=== PATIENT | female | born 1945 | race Caucasian/White ===

== ENCOUNTER 2016-10-19 09:40 | Day surgery (SDC) | payer BC, MEDICARE ==
--- NOTE | ~2016-10-19 | EGD ---
EGD REPORT [facility] [address] [place] [id number] NAME: RONIT MEDRANO : [birth year] STATUS : REG [facility]#: [id number] AGE: 71 ADM/REG DATE : 10/19/16 MR#: [id number] REPORT SERV DATE: 10/19/16 DICTATED BY: BERTHA MCGOWAN DATE: 10/19/16 REPORT STATUS : Draft TRANSCRIBED BY: [facility] DATE: 10/19/16 Endoscopy Center Patient Name: Ronit Medrano Date of : 1945 Attending MD: BERTHA MCGOWAN MD Procedure Date No Time: 10/19/2016 Procedure: Colonoscopy Indications: High risk colon cancer surveillance: Personal history of colonic polyps, FH of Colon Cancer - 1st degree relative Referring MD: KAYE LOWERY Medicines: as per anesthesia Complications: No immediate complications. Procedure: Pre-Anesthesia Assessment: - ASA Grade Assessment: II - A patient with mild systemic disease. After I obtained informed consent, the scope was passed under direct vision. Throughout the procedure, the patient's blood pressure, pulse, and oxygen saturations were monitored continuously. The [facility] [id number] was introduced through the anus and advanced to the cecum, identified by appendiceal orifice and ileocecal valve. The colonoscopy was performed without difficulty. The patient tolerated the procedure. The quality of the bowel preparation was adequate to identify polyps. Findings: The perianal and digital rectal examinations were normal. A few small and large-mouthed diverticula were found in the sigmoid colon. Impression: - Diverticulosis in the sigmoid colon. Recommendation: - Repeat colonoscopy in 5 years for surveillance. Procedure Code(s): --- Professional --- 65132, Colonoscopy, flexible, proximal to splenic flexure; diagnostic, with or without collection of specimen(s) by brushing or washing, with or without colon decompression (separate procedure) Diagnosis Code(s): --- Professional --- K57.30, Diverticulosis of large intestine without perforation or abscess without bleeding Z86.010, Personal history of colonic polyps Z80.0, Family history of malignant neoplasm of digestive EGD REPORT [place] [address] [id number] NAME: RONIT MEDRANO : [birth year] STATUS : REG [facility] PAT#: [id number] AGE: 71 ADM/REG DATE : 10/19/16 MR#: [id number] REPORT SERV DATE: 10/19/16 DICTATED BY: BERTHA MCGOWAN. DATE: 10/19/16 REPORT STATUS : Draft TRANSCRIBED BY: [employer] DATE: 10/19/16 organs CPT copyright 2013 [employer]. All rights reserved. The codes documented in this report are preliminary and upon ekg monitor tech review may be revised to meet current compliance requirements. BERTHA MCGOWAN MD 10/19/2016 11:41 AM This report has been signed electronically. Number of Addenda: 0 Note Initiated On: 10/19/2016 11:13 AM Scope Withdrawal Time 0 hours 6 minutes 35 seconds [id number] [id number]
[~2016-10-19 09:40] MED LIST: ASAB PO; B12100T PO; CALTRA600D PO; FERROUS SULF325 M1 PO; FISH-EPA1000 MG PO; PROMAR OR; VITC500 PO
== END 2016-10-19 23:59 | disposition home or self-care (01) ==
LOC: DMU 09:40
PROVIDERS: Internal Medicine Gastroenterology
PROC: 0DJD8ZZ Inspection of Lower Intestinal Tract, Via Natural or Artificial Opening Endoscopic (ICD-10-PCS; principal; 2016-10-19 11:00)
DX: Z12.11 Encounter for screening for malignant neoplasm of colon (principal); K21.9 Gastro-esophageal reflux disease without esophagitis; K57.30 Diverticulosis of large intestine without perforation or abscess without bleeding; Z86.010 Personal history of colon polyps; Z80.0 Family history of malignant neoplasm of digestive organs; Z79.899 Other long term (current) drug therapy; Z79.82 Long term (current) use of aspirin